=== PATIENT | male | born 2005 | race Caucasian/White ===

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

== ENCOUNTER 2023-06-30 10:01 | Emergency (ER) | payer OTHER ==
[~2023-06-30] VITALS: Wt 62.1 kg
[2023-06-30 11:37] LABS: BASO % 0.4 % (0.0-1.0); EOS % 0.2 % (1.0-4.0); HEMATOCRIT 45.4 % (42.0-52.0); LYMPH % 12.4 % (27.0-41.0); MEAN CELL VOLUME 80.6 fl (80.0-94.0); MEAN CORPUSCULAR HGB 29.1 pg (27.0-31.0); MEAN CORPUSCULAR HGB CONC 36.1 g/dl (33.0-37.0); MEAN PLATELET VOLUME 9.8 fl (9.6-12.3); MONO # 0.2 10*3/uL (0.1-1.0); MONO % 2.9 % (3.0-9.0); PLATELET COUNT AUTOMATED 276 10*3/uL (130-400); RED BLOOD COUNT 5.63 10*6/uL (4.50-5.90); RED CELL DISTRI WIDTH 11.7 % (0-14.5); WHITE BLOOD COUNT 8.4 10*3/uL (4.8-10.8)
[2023-06-30 12:00] LABS: ALKALINE PHOSPHATASE 70 U/L (46-116); CHLORIDE 106 mmol/L (98-107); LIPASE 26 U/L (12-53); POTASSIUM 4.1 mmol/L (3.4-5.1); SGPT/ALT 13 U/L (10-49)
[2023-06-30 12:02] LABS: BUN < 5 mg/dl (9-23)
[2023-06-30] MEDS ORDERED: ONDANSETRON4 MG SL (14:35)
== END 2023-06-30 14:37 | disposition home or self-care (01) ==
LOC: ED 10:01
PROVIDERS: Emergency Medicine
DX: R11.2 Nausea with vomiting, unspecified (principal); K21.9 Gastro-esophageal reflux disease without esophagitis; J45.909 Unspecified asthma, uncomplicated; Z88.0 Allergy status to penicillin; Z88.8 Allergy status to other drugs, medicaments and biological substances; Z98.890 Other specified postprocedural states

== ENCOUNTER 2024-01-25 14:38 | Emergency (ER) | payer OTHER ==
[~2024-01-25] VITALS: Ht 170.1 cm; Wt 54.4 kg
[~2024-01-25 14:38] MED LIST changes: +ONDANSETRON4 MG SL
[2024-01-25] MEDS ORDERED: CLARITIN10 MG PO (14:52)
[2024-01-25] MEDS ORDERED: FLONASE ALLERG9.9 ML NAS (14:53)
== END 2024-01-25 16:06 | disposition home or self-care (01) ==
LOC: ED 14:38
DX: J10.1 Influenza due to other identified influenza virus with other respiratory manifestations (principal); Z20.822 Contact with and (suspected) exposure to COVID-19; G43.909 Migraine, unspecified, not intractable, without status migrainosus; K21.9 Gastro-esophageal reflux disease without esophagitis; J45.909 Unspecified asthma, uncomplicated; Z88.0 Allergy status to penicillin; Z88.8 Allergy status to other drugs, medicaments and biological substances; Z98.890 Other specified postprocedural states; Z87.891 Personal history of nicotine dependence

== ENCOUNTER 2024-09-19 09:50 | Emergency (ER) | payer OTHER ==
[~2024-09-19] VITALS: Wt 57.6 kg
[~2024-09-19 09:50] MED LIST changes: +CLARITIN10 MG PO; +FLONASE ALLERG9.9 ML NAS
[2024-09-19] MEDS ORDERED: methylPREDNISolone sod succ 125 MG VIAL IM ONE (10:10)
[2024-09-19] MEDS ORDERED: Albuterol Sulf/Ipratropium 3 ML VIAL NEB ONE (10:10)
[2024-09-19] MEDS ORDERED: ALBUTEROL SULFATE HF INH (10:31)
[2024-09-19] MEDS ORDERED: MEDROL DOSEPAK4 MG PO (11:08)
== END 2024-09-19 11:14 | disposition home or self-care (01) ==
LOC: ED 09:50
DX: J45.901 Unspecified asthma with (acute) exacerbation (principal); K21.9 Gastro-esophageal reflux disease without esophagitis; Z88.0 Allergy status to penicillin; Z88.8 Allergy status to other drugs, medicaments and biological substances; Z98.890 Other specified postprocedural states; Z53.29 Procedure and treatment not carried out because of patient's decision for other reasons

== ENCOUNTER 2024-09-30 08:50 | Emergency (ER) | payer OTHER ==
[~2024-09-30] VITALS: Ht 167.6 cm; Wt 56.7 kg
[~2024-09-30 08:50] MED LIST changes: +ALBUTEROL SULFATE HF INH; +MEDROL DOSEPAK4 MG PO
[2024-09-30] MEDS ORDERED: ZYRTEC10 M2 PO (09:01)
[2024-09-30] MEDS ORDERED: AZITHROMYCIN 250 MG TAB PO ONE (09:55)
[2024-09-30] MEDS ORDERED: AVPAK AZITHROM250 M1 PO (10:40)
== END 2024-09-30 10:56 | disposition home or self-care (01) ==
LOC: ED 08:50
DX: J45.909 Unspecified asthma, uncomplicated (principal); Z20.822 Contact with and (suspected) exposure to COVID-19; K21.9 Gastro-esophageal reflux disease without esophagitis; Z88.0 Allergy status to penicillin; Z88.8 Allergy status to other drugs, medicaments and biological substances; Z98.890 Other specified postprocedural states; Z87.891 Personal history of nicotine dependence

== ENCOUNTER 2025-01-23 10:33 | Emergency (ER) | payer OTHER ==
[~2025-01-23] VITALS: Ht 170.1 cm; Wt 55.1 kg
[~2025-01-23 10:33] MED LIST changes: +AVPAK AZITHROM250 M1 PO; +ZYRTEC10 M2 PO
[2025-01-23] MEDS ORDERED: NAPROSYN500 MG PO (11:19)
[2025-01-23] MEDS ORDERED: CLINDAMYCIN HC300 MG PO (11:19)
[2025-01-23] MEDS ORDERED: Ketorolac Tromethamine 60 MG/2 ML VIAL IM ONE (11:25)
[2025-01-23] MEDS ORDERED: CLINDAMYCIN HCL 300 MG CAPSULE PO ONE (11:25)
[2025-01-23] MEDS ORDERED: Acetaminophen/Hydrocodone 5 MG/325 MG TABLET PO ONE (11:25)
== END 2025-01-23 11:46 | disposition home or self-care (01) ==
LOC: ED 10:33
DX: K08.89 Other specified disorders of teeth and supporting structures (principal); G43.909 Migraine, unspecified, not intractable, without status migrainosus; K21.9 Gastro-esophageal reflux disease without esophagitis; J45.909 Unspecified asthma, uncomplicated; Z88.0 Allergy status to penicillin; Z88.8 Allergy status to other drugs, medicaments and biological substances; Z98.890 Other specified postprocedural states

== ENCOUNTER 2025-07-27 22:56 | Emergency (ER) | payer SELFPAY ==
[~2025-07-27] VITALS: Ht 170.2 cm; Wt 54.4 kg
[~2025-07-27 22:56] MED LIST changes: +NAPROSYN500 MG PO
[2025-07-27] MEDS ORDERED: BENZOCAINE 20% 11.9 GM GEL T STA (23:13)
[2025-07-27] MEDS ORDERED: MELOXICAM15 MG PO (23:25)
[2025-07-28] MEDS ORDERED: CLINDAMYCIN HC300 MG PO (13:22)
[2025-07-28] MEDS ORDERED: Motrin,Rufen800 MG PO ×2 (13:22→14:31)
== END 2025-07-27 23:47 | disposition home or self-care (01) ==
LOC: ED 22:56
DX: K08.89 Other specified disorders of teeth and supporting structures (principal); R22.0 Localized swelling, mass and lump, head; J45.909 Unspecified asthma, uncomplicated; K21.9 Gastro-esophageal reflux disease without esophagitis; Z98.890 Other specified postprocedural states; Z88.0 Allergy status to penicillin; Z88.1 Allergy status to other antibiotic agents

== ENCOUNTER 2025-07-28 12:54 | Emergency (ER) | payer SELFPAY ==
[~2025-07-28] VITALS: Ht 170.1 cm; Wt 54.4 kg
[~2025-07-28 12:54] MED LIST changes: +MELOXICAM15 MG PO
[2025-07-28] MEDS ORDERED: CLINDAMYCIN HC300 MG PO (13:22)
[2025-07-28] MEDS ORDERED: Motrin,Rufen800 MG PO ×2 (13:22→14:31)
[2025-07-28] MEDS ORDERED: Acetaminophen/Oxycodone 5 MG/325 MG TABLET PO ONE (13:25)
[2025-07-28] MEDS ORDERED: CLINDAMYCIN HCL 300 MG CAPSULE PO ONE (13:25)
== END 2025-07-28 13:25 | disposition home or self-care (01) ==
LOC: ED 12:54
DX: K04.7 Periapical abscess without sinus (principal); K21.9 Gastro-esophageal reflux disease without esophagitis; J45.909 Unspecified asthma, uncomplicated; G43.909 Migraine, unspecified, not intractable, without status migrainosus; Z79.899 Other long term (current) drug therapy; Z88.0 Allergy status to penicillin; Z88.1 Allergy status to other antibiotic agents

== ENCOUNTER 2025-10-17 15:55 | Emergency (ER) | payer OTHER ==
[~2025-10-17] VITALS: Wt 54.4 kg
[~2025-10-17 15:55] MED LIST changes: +Motrin,Rufen800 MG PO
== END 2025-10-17 18:48 | disposition home or self-care (01) ==
LOC: ED 15:55
DX: R51.9 Headache, unspecified (principal); M54.2 Cervicalgia; Z88.0 Allergy status to penicillin; Z88.1 Allergy status to other antibiotic agents; Z79.899 Other long term (current) drug therapy; Z98.890 Other specified postprocedural states; V89.0XXA Person injured in unspecified motor-vehicle accident, nontraffic, initial encounter; Y93.I9 Activity, other involving external motion; Y92.488 Other paved roadways as the place of occurrence of the external cause; Y99.8 Other external cause status

== ENCOUNTER 2025-10-23 00:44 | Emergency (ER) | payer SELFPAY ==
[~2025-10-23] VITALS: Wt 53.5 kg
[2025-10-23] MEDS ORDERED: Albuterol Sulf/Ipratropium 3 ML VIAL NEB ONE (01:55)
[2025-10-23] MEDS ORDERED: predniSONE 20 MG TAB PO ONE (02:15)
[2025-10-23] MEDS ORDERED: PREDNISONE10 M1 PO (03:44)
== END 2025-10-23 04:21 | disposition home or self-care (01) ==
LOC: ED 00:44
DX: J45.909 Unspecified asthma, uncomplicated (principal); K21.9 Gastro-esophageal reflux disease without esophagitis; Z88.0 Allergy status to penicillin; Z88.1 Allergy status to other antibiotic agents; Z98.890 Other specified postprocedural states